=== PATIENT | female | born 1970 | race Caucasian/White ===

== ENCOUNTER → 2016-11-28 | Outpatient (CLI) | payer BC ==
[~2016-11-28] MED LIST: NONE PER PT
[2016-11-28 09:46] LABS: HEMOGLOBIN 13.9 g/dL (11.7-16.4)
[2016-11-28 09:59] LABS: ASPARTATE AMINO TRANSFERASE 11 U/L (15-37); BLOOD UREA NITROGEN 8 mg/dL (7-18)
== END | disposition home or self-care (01) ==
LOC: STAR 08:36
PROVIDERS: ATTEND Obstetrics & Gynecology
DX: Z01.818 Encounter for other preprocedural examination (principal); D25.9 Leiomyoma of uterus, unspecified
CPT/HCPCS: 36415; 80053; 81001; 84703; 85025; 93005

== ENCOUNTER 2016-12-12 05:48 | Inpatient (IN) | payer BC ==
[~2016-12-12] VITALS: Ht 170.2 cm; Wt 83.7 kg
[2016-12-12 06:21] VITALS: BP 133/85
[2016-12-12] MEDS ORDERED: LACTATED RINGERS 1,000 ML IV SCH (06:24)
[2016-12-12] MEDS ORDERED: HYDROmorphone 1 MG/ML, 1ML ONE (07:17)
[2016-12-12] MEDS ORDERED: MIDAZOLAM 1 MG/ML, 2ML ONE (07:18)
[2016-12-12] MEDS ORDERED: FENTANYL PF 250 MCG/5ML ONE (07:18)
[2016-12-12] MEDS ORDERED: LABETALOL 5MG/ML, 20ML IV PRN (07:30)
[2016-12-12] MEDS ORDERED: HYDROmorphone 1 MG/ML, 1ML IV PRN (07:30)
[2016-12-12] MEDS ORDERED: OXYcodone 5 MG/5 ML ORAL.SOL UDC PO PRN (07:30)
[2016-12-12] MEDS ORDERED: MIDAZOLAM 1 MG/ML, 2ML IV PRN (07:30)
[2016-12-12] MEDS ORDERED: MEPERIDINE/PF 25MG/0.5ML IVPush PRN (07:30)
[2016-12-12] MEDS ORDERED: ACETAMINOPHEN 325 MG TABLET PO PRN (07:30)
[2016-12-12] MEDS ORDERED: ONDANSETRON 2MG/ML, 2ML IVPush PRN (07:30)
[2016-12-12] MEDS ORDERED: METOCLOPRAMIDE 5 MG/ML, 2ML IV PRN (07:30)
[2016-12-12] MEDS ORDERED: PROMETHAZINE 25 MG/ML, 1ML IV PRN (07:30)
[2016-12-12] MEDS ORDERED: hydrALAzine 20 MG/ML, 1ML IV PRN (07:30)
[2016-12-12] MEDS ORDERED: GLYCOPYRROLATE 0.2MG/1ML ONE (07:49)
[2016-12-12] MEDS ORDERED: CEFAZOLIN 1,000 MG ONE (07:49)
[2016-12-12] MEDS ORDERED: KETOROLAC 30 MG/1 ML ONE (07:49)
[2016-12-12] MEDS ORDERED: ESMOLOL 100 MG/10 ML ONE (07:49)
[2016-12-12] MEDS ORDERED: SUCCINYLCHOLINE 20 MG/ML, 10ML ONE (07:49)
[2016-12-12] MEDS ORDERED: DEXAMETHASONE 4 MG/ML, 5ML ONE (07:49)
[2016-12-12] MEDS ORDERED: EPHEDRINE 50 MG/ML, 1ML ONE (07:49)
[2016-12-12] MEDS ORDERED: ONDANSETRON 2MG/ML, 2ML ONE (07:49)
[2016-12-12] MEDS ORDERED: ROCURONIUM 10 MG/ML ONE (07:49)
[2016-12-12] MEDS ORDERED: NEOSTIGMINE 1 MG/ML, 10ML ONE (07:49)
[2016-12-12] MEDS ORDERED: PHENYLEPHRINE 10 MG/ML ONE (07:49)
[2016-12-12] MEDS ORDERED: PROPOFOL 10 MG/ML, 20ML ONE (07:49)
[2016-12-12 08:00] LABS: HCG UR OBC PASS
[2016-12-12] MEDS ORDERED: ACETAMINOPHEN 650 MG/20.3 ML UDC ONE (10:23)
[2016-12-12] MEDS ORDERED: OXYcodone 5 MG/5 ML ORAL.SOL UDC ONE (10:23)
[2016-12-12] MEDS ORDERED: MEPERIDINE/PF 25MG/0.5ML ONE (10:23)
[2016-12-12] MEDS ORDERED: FENTANYL PF 100 MCG/2ML ONE (10:23)
[2016-12-12] MEDS: FENTANYL PF 100 MCG/2ML IV PRN ×2 (10:39→10:48)
[2016-12-12 11:40] VITALS: BP 108/72
[2016-12-12] MEDS ORDERED: HYDROmorphone 2 MG/ML, 1ML IV PRN (12:30)
[2016-12-12] MEDS ORDERED: ONDANSETRON 2MG/ML, 2ML IV PRN (12:30)
[2016-12-12] MEDS ORDERED: KETOROLAC 30 MG/1 ML IV PRN (12:30)
[2016-12-12] MEDS: D5%-LACTATED RINGERS 1,000 ML IV SCH ×2 (13:20→19:16)
[2016-12-12] MEDS: OXYcodone/APAP 5/325MG TABLET PO PRN ×2 (13:22→20:39)
[2016-12-12 15:12] VITALS: BP 113/67
[2016-12-12] MEDS: IBUPROFEN 600 MG TABLET PO SCH ×2 (15:39→20:39)
[2016-12-12 19:13] VITALS: BP 151/82
[2016-12-13] MEDS: D5%-LACTATED RINGERS 1,000 ML IV SCH ×3 (00:50→20:45)
[2016-12-13 00:53] VITALS: BP 134/74
[2016-12-13 04:31] VITALS: BP 126/69
[2016-12-13 05:26] LABS: HEMOGLOBIN 10.8 g/dL (11.7-16.4)
[2016-12-13] MEDS: IBUPROFEN 600 MG TABLET PO SCH ×4 (05:50→20:45)
[2016-12-13 06:55] VITALS: BP 117/75
[2016-12-13 16:37] VITALS: BP 126/79
[2016-12-13 18:52] VITALS: BP 128/79
[2016-12-14] MEDS: D5%-LACTATED RINGERS 1,000 ML IV SCH (04:15)
[2016-12-14 04:56] VITALS: BP 115/83
[2016-12-14] MEDS: IBUPROFEN 600 MG TABLET PO SCH ×2 (06:22→11:07)
[2016-12-14 09:10] VITALS: BP 130/84
[2016-12-14 12:06] VITALS: BP 132/85
[2016-12-14] MEDS ORDERED: OXYC-302 PO (12:35)
[2016-12-14] MEDS ORDERED: IBUP-1222 PO (12:36)
== END 2016-12-14 12:40 | disposition home or self-care (01) | DRG 743 ==
LOC: ORIP 05:48 → 4NOR 11:35 → DCLOUNGE 12-14 12:32
PROVIDERS: ADMIT Obstetrics & Gynecology; ATTEND Obstetrics & Gynecology
PROC: 0UTC0ZZ Resection of Cervix, Open Approach (ICD-10-PCS; 2016-12-12)
PROC: 0UT70ZZ Resection of Bilateral Fallopian Tubes, Open Approach (ICD-10-PCS; 2016-12-12)
PROC: 0UT90ZZ Resection of Uterus, Open Approach (ICD-10-PCS; principal; 2016-12-12 07:30)
DX: D25.9 Leiomyoma of uterus, unspecified (principal); Z82.49 Family history of ischemic heart disease and other diseases of the circulatory system
CPT/HCPCS: 36415; 81025; 85014; 85018; 88307; J0690; J1100; J1170; J1885; J2175; J2250; J2405; J2704; J2710; J3010; J3490; J0330; J2370; J7120; J7121

== ENCOUNTER 2017-02-28 14:55 | Emergency (ER) | payer BC ==
[~2017-02-28] VITALS: Ht 170.2 cm; Wt 86.1 kg
[~2017-02-28 14:55] MED LIST changes: +IBUP-1222 PO; +OXYC-302 PO
[2017-02-28] MEDS ORDERED: SODIUM CHLORIDE 0.9% 1,000ML IVBOLUS ONE (15:30)
[2017-02-28] MEDS ORDERED: ONDANSETRON 2MG/ML, 2ML IVPush ONE (15:30)
[2017-02-28] MEDS ORDERED: MORPHINE SULFATE 4 MG/ML, 1ML IVPush PRN (15:30)
[2017-02-28] MEDS ORDERED: SODIUM CHLORIDE FLUSH 10ML SYR IVF ONE (15:30)
[2017-02-28 15:42] LABS: BLOOD UREA NITROGEN 7 mg/dL (7-18)
[2017-02-28 15:49] LABS: ASPARTATE AMINO TRANSFERASE 14 U/L (15-37)
[2017-02-28] MEDS ORDERED: ONDANSETRON 2MG/ML, 2ML ONE (16:29)
[2017-02-28] MEDS ORDERED: MAALOX/HYOSCYAMINE/LIDOCAINE 45 ML BOTTLE ONE (16:29)
[2017-02-28] MEDS ORDERED: FAMOTIDINE 20 MG/2 ML ONE (16:29)
[2017-02-28] MEDS ORDERED: MAALOX/HYOSCYAMINE/LIDOCAINE 45 ML BOTTLE PO ONE (16:30)
[2017-02-28] MEDS ORDERED: FAMOTIDINE 20 MG/2 ML IVPush ONE (16:30)
[2017-02-28 16:44] LABS: IS PT STATUS REG ER OR PRE ER? YES
[2017-02-28] MEDS ORDERED: FAMOTIDINE 20 MG TABLET ONE (17:14)
[2017-02-28 17:26] VITALS: BP 156/83
[2017-02-28] MEDS ORDERED: FAMOTIDINE 20 MG TABLET PO ONE (17:30)
== END 2017-02-28 17:29 | disposition home or self-care (01) ==
LOC: ED 17:23
DX: K21.0 Gastro-esophageal reflux disease with esophagitis (principal)
CPT/HCPCS: 36415; 76700; 80053; 83690; 84484; 84703; 85025; 93005; 99285